=== PATIENT | male | born 1965 | race Caucasian/White ===

== ENCOUNTER → 2020-07-11 | Outpatient (CLI) | payer OTHER ==
[~2020-07-11] MED LIST: CALC600T60 PO; IBUP-1623 PO; MULT-449 PO; Super Beta Prostate PO; TURM500C4 PO
[2020-07-11 14:18] LABS: BASOPHILS % (AUTO) 1 % (0-1); EOSINOPHILS % (AUTO) 2 % (1-7); LYMPHOCYTES % (AUTO) 25 % (22-44); MEAN CORPUSCULAR HEMOGLOBIN 31.4 pg (27.5-34.5); MEAN CORPUSCULAR HGB CONC 34.2 g/dL (33.2-36.2); MEAN PLATELET VOLUME 7.7 fL (7.4-10.4); MONOCYTES % (AUTO) 9 % (2-9); NEUTROPHILS % (AUTO) 63 % (42-75); PLATELET COUNT 158 x10^3/uL (130-400); RED BLOOD COUNT 5.28 x10^6/uL (4.38-5.82); RED CELL DISTRIBUTION WIDTH 12.7 % (9.4-14.8)
[2020-07-11 14:20] LABS: MD NO
[2020-07-11 14:25] LABS: INTERNATIONAL NORMALIZED RATIO 1.03 (0.93-1.1); PROTHROMBIN TIME 10.9 Seconds (9.6-11.5)
[2020-07-11 14:26] LABS: ANION GAP 9 mmol/L (5-15); CALCIUM 9.3 mg/dL (8.5-10.1); CHLORIDE 109 mmol/L (98-107); CREATININE 1.24 mg/dL (0.7-1.3)
== END | disposition home or self-care (01) ==
LOC: STAR 13:01
PROVIDERS: ATTEND Orthopaedic Surgery
DX: Z01.818 Encounter for other preprocedural examination (principal); M17.12 Unilateral primary osteoarthritis, left knee; Z79.01 Long term (current) use of anticoagulants
CPT/HCPCS: 36415; 80048; 83036; 85025; 85610; 85730; 87081; 93005

== ENCOUNTER 2020-07-19 05:17 | Day surgery (SDC) | payer OTHER ==
[~2020-07-19] VITALS: Ht 175.3 cm; Wt 105.9 kg
[2020-07-19 05:45] VITALS: BP 153/88
[2020-07-19] MEDS ORDERED: CHLORHEXIDINE 15 ML UDC MM ONE (06:00)
[2020-07-19] MEDS ORDERED: ACETAMINOPHEN 500 MG TABLET PO ONE (06:00)
[2020-07-19] MEDS ORDERED: GABAPENTIN 300 MG CAPSULE PO ONE (06:00)
[2020-07-19] MEDS: LACTATED RINGERS 1,000 ML IV SCH ×2 (06:04→06:06)
[2020-07-19] MEDS ORDERED: ROPIvacaine/PF 0.5%, 20 ML ONE (06:23)
[2020-07-19] MEDS ORDERED: KETOROLAC 60 MG/2 ML ONE (06:23)
[2020-07-19] MEDS ORDERED: TRANEXAMIC ACID 100 MG/ML, 10ML ONE ×2 (06:23)
[2020-07-19] MEDS ORDERED: VANCOMYCIN 1,000 MG ONE (06:23)
[2020-07-19] MEDS ORDERED: ROPIvacaine/PF 0.5%, 30 ML ONE (06:23)
[2020-07-19] MEDS ORDERED: SODIUM CHLORIDE 0.9% 50 ML ONE (06:23)
[2020-07-19] MEDS ORDERED: EPINEPHRINE 1 MG/ML, 1ML ONE (06:24)
[2020-07-19] MEDS ORDERED: FENTANYL PF 250 MCG/5ML ONE ×2 (06:43→07:21)
[2020-07-19] MEDS ORDERED: NEOSTIGMINE 1 MG/ML, 10ML ONE (06:53)
[2020-07-19] MEDS ORDERED: DEXAMETHASONE 4 MG/ML, 1ML ONE (06:53)
[2020-07-19] MEDS ORDERED: PROPOFOL 10 MG/ML, 20ML ONE (06:53)
[2020-07-19] MEDS ORDERED: CEFAZOLIN 1,000 MG ONE (06:53)
[2020-07-19] MEDS ORDERED: SUCCINYLCHOLINE 20 MG/ML, 10ML ONE (06:53)
[2020-07-19] MEDS ORDERED: ONDANSETRON 2MG/ML, 2ML ONE (06:53)
[2020-07-19] MEDS ORDERED: ROCURONIUM 10 MG/ML,10ML ONE (06:53)
[2020-07-19] MEDS ORDERED: GLYCOPYRROLATE 0.2MG/1ML, 5ML ONE (06:53)
[2020-07-19] MEDS ORDERED: DIPHENHYDRAMINE 50 MG CAPSULE PO PRN (07:00)
[2020-07-19] MEDS ORDERED: ONDANSETRON 2MG/ML, 2ML IV PRN (07:00)
[2020-07-19] MEDS ORDERED: BISACODYL 10 MG SUPP PR PRN (07:00)
[2020-07-19] MEDS ORDERED: SENNA/DOCUSATE TABLET PO PRN (07:00)
[2020-07-19] MEDS ORDERED: HYDROcodone/APAP 5/325 TABLET PO PRN (07:00)
[2020-07-19] MEDS ORDERED: ONDANSETRON 4 MG TABLET PO PRN (07:00)
[2020-07-19] MEDS ORDERED: HYDROmorphone 1 MG/ML, 1ML INJ IV PRN (07:00)
[2020-07-19] MEDS ORDERED: MAGNESIUM HYDROXIDE 8%, 30ML UDC PO PRN (07:00)
[2020-07-19] MEDS ORDERED: ACETAMINOPHEN 650 MG/20.3 ML UDC PO PRN (07:00)
[2020-07-19] MEDS ORDERED: OXYcodone IR 5MG TABLET PO PRN (07:00)
[2020-07-19] MEDS ORDERED: ZOLPIDEM 5MG TABLET PO PRN (07:00)
[2020-07-19] MEDS ORDERED: EPHEDRINE 50 MG/ML, 1ML IVPush PRN (08:00)
[2020-07-19] MEDS ORDERED: hydrALAzine 20 MG/ML, 1ML IV PRN (08:00)
[2020-07-19] MEDS ORDERED: METHOCARBAMOL 1,000 MG in DEXTROSE 5% 100 ML IV PRN (08:00)
[2020-07-19] MEDS ORDERED: MEPERIDINE/PF 25MG/0.5ML IVPush PRN (08:00)
[2020-07-19] MEDS ORDERED: ONDANSETRON 2MG/ML, 2ML IVPush PRN (08:00)
[2020-07-19] MEDS ORDERED: LORazepam 2 MG/ML, 1ML IVPush PRN (08:00)
[2020-07-19] MEDS ORDERED: ACETAMINOPHEN 325 MG TABLET PO PRN (08:00)
[2020-07-19] MEDS ORDERED: PROMETHAZINE 25 MG/ML, 1ML IVPush PRN (08:00)
[2020-07-19] MEDS ORDERED: LABETALOL 5MG/ML, 20ML IV PRN (08:00)
[2020-07-19] MEDS ORDERED: FENTANYL PF 100 MCG/2ML ONE (08:44)
[2020-07-19] MEDS: FENTANYL PF 100 MCG/2ML IV PRN ×4 (08:50→09:05)
[2020-07-19] MEDS ORDERED: DOCUSATE 100 MG CAPSULE PO SCH (09:00)
[2020-07-19] MEDS ORDERED: OXYcodone 5 MG/5 ML ORAL.SOL UDC ONE ×2 (09:12→09:19)
[2020-07-19] MEDS: OXYcodone 5 MG/5 ML ORAL.SOL UDC PO PRN ×2 (09:13→09:22)
[2020-07-19] MEDS ORDERED: HYDROmorphone 1 MG/ML, 1ML INJ ONE (09:19)
[2020-07-19] MEDS: HYDROmorphone 1 MG/ML, 1ML INJ IVPush PRN ×3 (09:23→09:50)
[2020-07-19] MEDS ORDERED: NS + 20MEQ KCL 1,000 ML IV SCH (10:44)
[2020-07-19] MEDS ORDERED: CEFAZOLIN PMX 2GM/50ML 50 ML IVPB SCH (11:30)
[2020-07-19 12:14] VITALS: BP 120/77
[2020-07-19] MEDS: KETOROLAC 30 MG/1 ML IVPush SCH ×2 (12:31→13:00)
[2020-07-19] MEDS ORDERED: OXYC5CAP2 PO (15:40)
[2020-07-19] MEDS ORDERED: TRAM50TA2 PO (15:41)
[2020-07-19] MEDS ORDERED: RIVA10TA2 PO (15:42)
[2020-07-19] MEDS ORDERED: MELO7.5T31 PO (15:42)
[2020-07-20] MEDS ORDERED: DEXAMETHASONE 4 MG/ML, 1ML IVPush SCH (06:00)
== END 2020-07-19 17:50 | disposition home or self-care (01) ==
LOC: OUT 05:17 → 4NW 10:16 → OUT 17:50
PROVIDERS: ATTEND Orthopaedic Surgery
DX: M17.12 Unilateral primary osteoarthritis, left knee (principal); M25.762 Osteophyte, left knee; G89.18 Other acute postprocedural pain; G47.33 Obstructive sleep apnea (adult) (pediatric); Z20.828 Contact with and (suspected) exposure to other viral communicable diseases; Z88.8 Allergy status to other drugs, medicaments and biological substances; Z86.718 Personal history of other venous thrombosis and embolism; Z82.61 Family history of arthritis; Z82.3 Family history of stroke; Z82.49 Family history of ischemic heart disease and other diseases of the circulatory system
CPT/HCPCS: 27447; 64447; 87635; 97161; C1713; C1776; J0171; J0330; J0690; J1100; J1170; J1885; J2405; J2704; J2710; J2795; J2800; J3010; J3370; J7120; G0378